=== PATIENT | male | born 1980 | race Hispanic/Latino ===

== ENCOUNTER → 2018-05-30 | Outpatient (CLI) | payer OTHER | END | disposition home or self-care (01) | LOC: RAH 14:15 | PROVIDERS: ATTEND Orthopaedic Surgery | DX: S42.112A Displaced fracture of body of scapula, left shoulder, initial encounter for closed fracture (principal); X58.XXXA Exposure to other specified factors, initial encounter; Y93.89 Activity, other specified; Y92.89 Other specified places as the place of occurrence of the external cause; Y99.8 Other external cause status | CPT/HCPCS: 73200 ==

== ENCOUNTER → 2018-06-07 | Outpatient (CLI) | payer MEDICARE | END | disposition home or self-care (01) | LOC: RAH 14:07 | PROVIDERS: ATTEND Urology | DX: K76.0 Fatty (change of) liver, not elsewhere classified (principal); N20.0 Calculus of kidney; K40.90 Unilateral inguinal hernia, without obstruction or gangrene, not specified as recurrent; K57.90 Diverticulosis of intestine, part unspecified, without perforation or abscess without bleeding | CPT/HCPCS: 74176 ==

== ENCOUNTER → 2018-06-15 | Outpatient (CLI) | payer MEDICARE, OTHER | END | disposition home or self-care (01) | LOC: EDUNIT# 14:00 → RAH 14:02 | PROVIDERS: ATTEND Orthopaedic Surgery | DX: M19.012 Primary osteoarthritis, left shoulder (principal); M25.412 Effusion, left shoulder; M25.812 Other specified joint disorders, left shoulder | CPT/HCPCS: 73221 ==

== ENCOUNTER 2020-04-12 04:24 | Emergency (ER) | payer MEDICARE ==
[2020-04-12 04:50] LABS: BASOPHILS % (AUTO) 0.3 % (0.0-5.0); EOSINOPHILS % (AUTO) 0.9 % (0.0-8.0); HEMATOCRIT 43.5 % (42-54); LYMPHOCYTES % (AUTO) 14.8 % (21.0-51.0); MEAN CORPUSCULAR HEMOGLOBIN 30.6 pg (27.0-33.0); MEAN CORPUSCULAR HGB CONC 33.8 g/dL (32.0-36.0); MEAN CORPUSCULAR VOLUME 90.4 fL (79-99); MONOCYTES % (AUTO) 5.7 % (3.0-13.0); PLATELET COUNT (AUTO) 303 K/uL (130-400); RED BLOOD CELL COUNT(AUTO) 4.81 MIL/uL (4.50-6.20); RED CELL DISTRIBUTION WIDTH 12.7 % (11.0-15.5); WHITE BLOOD COUNT (AUTO) 17.6 K/uL (4.8-10.8)
[2020-04-12 04:59] LABS: INR 1.03 (0.85-1.15); PROTHROMBIN TIME 11.2 SEC (9.6-11.6)
[2020-04-12 05:00] LABS: ALBUMIN 4.3 g/dL (3.5-5.0); BILIRUBIN,TOTAL 0.9 mg/dL (0.2-1.0); PARTIAL THROMBOPLASTIN TIME 26.2 SEC (26.3-35.5); POTASSIUM 3.6 mmol/L (3.5-5.1); TOTAL PROTEIN, SERUM 9.5 g/dL (6.0-8.3)
[2020-04-12 05:05] LABS: CREATININE 8.7 mg/dL (0.5-1.5)
[2020-04-12] MEDS ORDERED: PANTOPRAZOLE 40 MG/VIAL ONE (05:12)
[2020-04-12] MEDS ORDERED: 0.9% NACL 500ML IV.SOLN 500 ML IV ONE ×2 (05:12→05:40)
[2020-04-12] MEDS ORDERED: ONDANSETRON 4MG INJ ONE (05:12)
[2020-04-12] MEDS ORDERED: METOCLOPRAMIDE 10 MG/2 ML VIAL ONE (05:12)
[2020-04-12] MEDS ORDERED: FAMOTIDINE 20MG VIAL IV ONE (05:13)
[2020-04-12] MEDS ORDERED: DiphenhydrAMINE HCL 50 MG/ML VIAL ONE ×2 (05:29→05:42)
[2020-04-12] MEDS ORDERED: ZOSYN 3.375GM+NS 50ML 50 ML IV ONE (09:00)
== END 2020-04-12 10:00 | disposition home or self-care (01) ==
LOC: EDH 04:24
DX: D72.829 Elevated white blood cell count, unspecified (principal); R10.13 Epigastric pain; R11.2 Nausea with vomiting, unspecified; E11.9 Type 2 diabetes mellitus without complications; E78.00 Pure hypercholesterolemia, unspecified
CPT/HCPCS: 36415; 71045; 74176; 76705; 80053; 83605 ×2; 83690; 84484; 85025; 85610; 85730; 87040 ×2; 93005; 96365; 96375; 99285; C9113; J1200 ×2; J2405; J2543; J2765; J3490; J7040 ×2

== ENCOUNTER 2020-08-03 17:07 | Emergency (ER) | payer MEDICARE ==
[~2020-08-03] VITALS: Ht 162.6 cm; Wt 70.8 kg
[2020-08-03 17:19] VITALS: BP 108/61
[2020-08-03 17:48] LABS: BASOPHILS % (AUTO) 0.4 % (0.0-5.0); EOSINOPHILS % (AUTO) 2.6 % (0.0-8.0); HEMATOCRIT 33.1 % (42-54); LYMPHOCYTES % (AUTO) 14.5 % (21.0-51.0); MEAN CORPUSCULAR HEMOGLOBIN 30.4 pg (27.0-33.0); MEAN CORPUSCULAR HGB CONC 32.9 g/dL (32.0-36.0); MEAN CORPUSCULAR VOLUME 92.5 fL (79-99); PLATELET COUNT (AUTO) 285 K/uL (130-400); RED BLOOD CELL COUNT(AUTO) 3.58 MIL/uL (4.50-6.20); RED CELL DISTRIBUTION WIDTH 12.7 % (11.0-15.5); WHITE BLOOD COUNT (AUTO) 13.3 K/uL (4.8-10.8)
[2020-08-03 18:02] LABS: INR 1.06 (0.85-1.15); PROTHROMBIN TIME 11.5 SEC (9.6-11.6)
[2020-08-03 18:20] VITALS: BP 108/61
[2020-08-03 18:33] LABS: ALANINE AMINOTRANSFERASE 6 U/L (12-78); ALBUMIN 3.4 g/dL (3.5-5.0); ASPARTATE AMINOTRANSFERASE 9 U/L (10-37); BILIRUBIN,TOTAL 0.8 mg/dL (0.2-1.0); CARBON DIOXIDE 31 mmol/L (21-32); CHLORIDE 98 mmol/L (101-111); CHOLESTEROL 145 mg/dL (<200); CREATINE KINASE, TOTAL 115 U/L (21-232); GLOMERULAR FILTR. RATE CALC 5 mL/min (>60); GLUCOSE,RANDOM 141 mg/dL (70-105); HDL CHOLESTEROL 32 mg/dL (29-71); LDL DIRECT 75 mg/dL (0-99); MYOGLOBIN 333 ng/mL (10-92); POTASSIUM 3.8 mmol/L (3.5-5.1); SODIUM SERUM 141 mmol/L (136-145); TRIGLYCERIDES 248 mg/dL (30-200); TROPONIN I < 0.04 ng/mL (0.00-0.06); UREA NITROGEN, BLOOD 35 mg/dL (7-18)
[2020-08-03 18:36] LABS: B-TYPE NATRIURETIC PEPTIDE 59 pg/mL (0-100)
[2020-08-03 18:37] LABS: CREATININE 11.3 mg/dL (0.5-1.5)
[2020-08-03 19:06] VITALS: BP 117/66
[2020-08-03] MEDS ORDERED: AMOX-426 PO (20:44)
[2020-08-03 21:29] VITALS: BP 106/61
[2020-08-03] MEDS ORDERED: VANCOMYCIN KIT 250 ML IV SCH (21:50)
[2020-08-03 22:28] VITALS: BP 104/57
== END 2020-08-03 22:43 | disposition home or self-care (01) ==
LOC: EDH 17:07
DX: D72.829 Elevated white blood cell count, unspecified (principal); E11.22 Type 2 diabetes mellitus with diabetic chronic kidney disease; N18.6 End stage renal disease; R78.81 Bacteremia; Z79.4 Long term (current) use of insulin; Z99.2 Dependence on renal dialysis
CPT/HCPCS: 36415; 71045; 80053; 80061; 82550; 83735; 83874; 83880; 84100; 84484; 85025; 85378; 85610; 87040 ×2; 93005 ×2; 96365; 99285; J3370